=== PATIENT | female | born 1975 | race Caucasian/White ===

== ENCOUNTER 2023-08-28 09:13 | Emergency (ER) | payer OTHER, BC ==
[~2023-08-28] VITALS: Ht 162.5 cm; Wt 63.5 kg
== END 2023-08-28 11:50 | disposition home or self-care (01) ==
LOC: ED 09:13
DX: S92.511A Displaced fracture of proximal phalanx of right lesser toe(s), initial encounter for closed fracture (principal); W20.8XXA Other cause of strike by thrown, projected or falling object, initial encounter; Y93.89 Activity, other specified; Y92.89 Other specified places as the place of occurrence of the external cause; Y99.0 Civilian activity done for income or pay